=== PATIENT | male | born 1995 | race African-American/Black ===

== ENCOUNTER 2017-05-16 13:10 | Emergency (ER) | payer OTHER ==
[~2017-05-16] VITALS: Ht 172.7 cm; Wt 79.4 kg
== END 2017-05-16 16:29 | disposition home or self-care (01) ==
LOC: ER 13:10
DX: S50.01XA Contusion of right elbow, initial encounter (principal); V43.12XA Car passenger injured in collision with other type car in nontraffic accident, initial encounter; Y93.89 Activity, other specified; Y92.488 Other paved roadways as the place of occurrence of the external cause; Y99.8 Other external cause status

== ENCOUNTER → 2017-06-09 | Emergency (ER) | payer OTHER ==
[~2017-06-09] VITALS: Ht 177.8 cm; Wt 81.6 kg
[~2017-06-09] MED LIST: CLEOCIN HCL300 MG PO; KETO10TA2 PO
== END | disposition home or self-care (01) ==
LOC: ER 03:56
DX: K02.9 Dental caries, unspecified (principal)

== ENCOUNTER 2017-07-24 12:49 | Outpatient (CLI) | payer OTHER | END 2017-07-24 12:55 | disposition home or self-care (01) | LOC: LAB 12:49 | DX: K52.89 Other specified noninfective gastroenteritis and colitis (principal) ==

== ENCOUNTER 2018-04-06 02:03 | Emergency (ER) | payer OTHER ==
[~2018-04-06] VITALS: Ht 177.8 cm; Wt 48.1 kg
== END 2018-04-06 10:03 | disposition home or self-care (01) ==
LOC: ER 02:03
DX: K52.9 Noninfective gastroenteritis and colitis, unspecified (principal)

== ENCOUNTER 2018-04-24 15:52 | Outpatient (CLI) | payer OTHER | END 2018-04-24 16:00 | disposition home or self-care (01) | LOC: LAB 15:52 | DX: J11.1 Influenza due to unidentified influenza virus with other respiratory manifestations (principal); J20.0 Acute bronchitis due to Mycoplasma pneumoniae ==